=== PATIENT | female | born 1955 | race Caucasian/White ===

== ENCOUNTER → 2020-05-15 | Outpatient (CLI) | payer OTHER ==
[~2020-05-15] MED LIST: ALLEGRA ALLERG180 MG PO; AMBIEN10 MG PO; ASPIR-LOW81 MG PO; BACTROBAN OINT22 GM EXT; BISOPROLOL-HCT1 EACH PO; CEFUROXIME250 MG PO; COZAAR50 MG PO; ELIQUIS2.5 MG PO; FERROUS SULFAT325 M2 PO; GLUCAGON IV/SC 11 MG IM; GLUCOPHAGE1000 MG PO; GLUTOSE 1537.5 GM PO; KLOR-CON 1010 MEQ PO; LASIX20 MG PO; LEVOFLOXACIN250 MG PO; LOPRESSOR 50 MG50 MG PO; LOPRESSOR100 MG PO; MAGNESIUM400 MG PO; MAGOX 400400 MG PO; NOVOLOG100 UNIT/1 SQ; PREVACID15 MG PO; PROPAFENONE HC225 M1 PO; TOUJEO MAX300 UNIT/1 SQ; VITAMIN D250000 UNIT PO; Voltaren Gel 1% TOP
== END ==
LOC: EXRD 12:43
DX: R06.02 Shortness of breath (principal)
CPT/HCPCS: 71046

== ENCOUNTER → 2020-06-25 | Outpatient (CLI) | payer OTHER | LOC: HEART 5 06-03 08:30 | DX: I48.91 Unspecified atrial fibrillation (principal); I27.20 Pulmonary hypertension, unspecified; I08.1 Rheumatic disorders of both mitral and tricuspid valves; R93.1 Abnormal findings on diagnostic imaging of heart and coronary circulation | CPT/HCPCS: 93306 ==

== ENCOUNTER → 2020-08-02 | Outpatient (CLI) | payer OTHER | LOC: MRI 13:43 | DX: H53.10 Unspecified subjective visual disturbances (principal); I67.82 Cerebral ischemia | CPT/HCPCS: 36415; 70553; 82565; A9577 ==

== ENCOUNTER 2020-11-22 18:34 | Emergency (ER) | payer OTHER ==
[2020-11-22 21:44] LABS: HEMOGLOBIN 9.9 gm/dl (12.3-15.3); RED BLOOD COUNT 3.45 M/UL (4.00-5.10); WHITE BLOOD COUNT 6.5 K/UL (4.5-11.0)
== END 2020-11-23 01:55 | disposition home or self-care (01) ==
LOC: ER1 18:34
PROVIDERS: Student in an Organized Health Care Education/Training Program
DX: E83.42 Hypomagnesemia (principal); I48.91 Unspecified atrial fibrillation; I25.10 Atherosclerotic heart disease of native coronary artery without angina pectoris; I10 Essential (primary) hypertension; E11.9 Type 2 diabetes mellitus without complications; Z90.49 Acquired absence of other specified parts of digestive tract
CPT/HCPCS: 80053; 83735; 85025; 93005; 96374; 99285; J3475

== ENCOUNTER → 2020-11-22 | Outpatient (CLI) | payer OTHER | LOC: LAB 15:48 | PROVIDERS: Nurse Practitioner | DX: E10.69 Type 1 diabetes mellitus with other specified complication (principal); E83.42 Hypomagnesemia; D51.9 Vitamin B12 deficiency anemia, unspecified; E55.9 Vitamin D deficiency, unspecified | CPT/HCPCS: 80053; 83735 ==

== ENCOUNTER 2020-11-24 14:21 | Emergency (ER) | payer OTHER ==
[2020-11-24 15:28] LABS: HEMOGLOBIN 9.1 gm/dl (12.3-15.3); RED BLOOD COUNT 3.12 M/UL (4.00-5.10); WHITE BLOOD COUNT 5.2 K/UL (4.5-11.0)
[2020-11-24 15:50] LABS: BUN/CREATININE RATIO 14 (0-10)
== END 2020-11-24 17:08 | disposition home or self-care (01) ==
LOC: ER1 14:21
PROVIDERS: Family Medicine
DX: D64.9 Anemia, unspecified (principal); E11.65 Type 2 diabetes mellitus with hyperglycemia; N28.9 Disorder of kidney and ureter, unspecified; I10 Essential (primary) hypertension; Z79.4 Long term (current) use of insulin; Z79.899 Other long term (current) drug therapy
CPT/HCPCS: 80053; 81001; 82550; 82553; 83735; 83874; 84439; 84443; 84484; 85025; 93005; 99285

== ENCOUNTER 2020-12-14 10:56 | Emergency (ER) | payer OTHER ==
[2020-12-14 11:53] LABS: RED BLOOD COUNT 3.21 M/UL (4.00-5.10); WHITE BLOOD COUNT 4.3 K/UL (4.5-11.0)
== END 2020-12-14 17:13 | disposition home or self-care (01) ==
LOC: ER1 10:56
PROVIDERS: Physician Assistant Medical
DX: H54.61 Unqualified visual loss, right eye, normal vision left eye (principal); E11.9 Type 2 diabetes mellitus without complications; I10 Essential (primary) hypertension; Z79.01 Long term (current) use of anticoagulants; Z90.49 Acquired absence of other specified parts of digestive tract
CPT/HCPCS: 70450; 70496; 70498; 80053; 85025; 85652; 86140; 99284; Q9967

== ENCOUNTER → 2021-03-06 | Outpatient (CLI) | payer OTHER ==
[~2021-03-06] MED LIST changes: +ACETAMINOPHEN325 MG PO; +AMLODIPINE BESYL5 MG PO; +ASPIRIN81 MG PO; +CRESTOR10 MG PO; +FAMOTIDINE40 MG PO; +HYDRALAZINE HC100 MG PO; +LOSARTAN POTAS100 MG PO; +MAGNESIUM250 M1 PO; -MAGOX 400400 MG PO; +METHIMAZOLE10 MG PO; +NOVOLOG FL100 UNIT/1 SQ; -NOVOLOG100 UNIT/1 SQ; +ONDANSETRON HCL4 MG PO; +PROPAFENONE HC150 MG PO; +SPIRONOLACTONE25 MG PO; +VITAMIN D21250 MCG PO; -VITAMIN D250000 UNIT PO
== END ==
LOC: KOH-I 15:47
DX: S82.002A Unspecified fracture of left patella, initial encounter for closed fracture (principal)
CPT/HCPCS: 73700

== ENCOUNTER → 2021-06-27 | Outpatient (CLI) | payer OTHER ==
[2021-06-27 11:48] LABS: HEMOGLOBIN 10.2 gm/dl (12.3-15.3); RED BLOOD COUNT 3.63 M/UL (4.00-5.10); WHITE BLOOD COUNT 6.9 K/UL (4.5-11.0)
== END ==
LOC: LAB 11:03
PROVIDERS: Internal Medicine Nephrology; Nurse Practitioner
DX: E78.2 Mixed hyperlipidemia (principal); E11.22 Type 2 diabetes mellitus with diabetic chronic kidney disease; I12.9 Hypertensive chronic kidney disease with stage 1 through stage 4 chronic kidney disease, or unspecified chronic kidney disease; N18.32 Chronic kidney disease, stage 3b; R53.82 Chronic fatigue, unspecified; E55.9 Vitamin D deficiency, unspecified; E53.8 Deficiency of other specified B group vitamins
CPT/HCPCS: 36415; 80053; 80061; 82043; 82570; 82607; 83036; 83735; 84156; 85025

== ENCOUNTER → 2021-07-16 | Outpatient (CLI) | payer OTHER | LOC: LAB 10:59 | PROVIDERS: Nurse Practitioner Family | DX: E11.41 Type 2 diabetes mellitus with diabetic mononeuropathy (principal); E83.42 Hypomagnesemia | CPT/HCPCS: 36415; 80053; 83735 ==

== ENCOUNTER → 2021-08-15 | Outpatient (CLI) | payer OTHER | LOC: LAB 11:08 | PROVIDERS: Nurse Practitioner Family | DX: E11.9 Type 2 diabetes mellitus without complications (principal); E83.42 Hypomagnesemia | CPT/HCPCS: 36415; 80053; 83735 ==

== ENCOUNTER → 2021-10-15 | Outpatient (CLI) | payer OTHER ==
[2021-10-16 10:16] LABS: CREATININE, URINE 27.6 mg/dL (Not Estab.)
== END ==
LOC: LAB 10:29
PROVIDERS: Internal Medicine Nephrology
DX: E11.22 Type 2 diabetes mellitus with diabetic chronic kidney disease (principal); N18.32 Chronic kidney disease, stage 3b; E83.42 Hypomagnesemia
CPT/HCPCS: 36415; 80053; 82043; 82570; 83735; 84156

== ENCOUNTER → 2021-11-05 | Outpatient (CLI) | payer OTHER ==
[2021-11-05 11:17] LABS: HEMOGLOBIN 11.3 gm/dl (12.3-15.3); RED BLOOD COUNT 4.02 M/UL (4.00-5.10); WHITE BLOOD COUNT 5.5 K/UL (4.5-11.0)
== END ==
LOC: LAB 10:03
PROVIDERS: Nurse Practitioner
DX: E55.9 Vitamin D deficiency, unspecified (principal); D51.9 Vitamin B12 deficiency anemia, unspecified
CPT/HCPCS: 36415; 80053; 82607; 82746; 83036; 83735; 84443; 85025

== ENCOUNTER 2021-11-09 16:32 | Emergency (ER) | payer OTHER ==
[2021-11-09 17:10] LABS: HEMOGLOBIN 10.9 gm/dl (12.3-15.3); RED BLOOD COUNT 3.83 M/UL (4.00-5.10)
== END 2021-11-09 20:34 | disposition home or self-care (01) ==
LOC: ER1 16:32
PROVIDERS: Emergency Medicine
DX: R20.2 Paresthesia of skin (principal); M79.601 Pain in right arm; E11.9 Type 2 diabetes mellitus without complications; I10 Essential (primary) hypertension; I48.91 Unspecified atrial fibrillation; Z90.49 Acquired absence of other specified parts of digestive tract; Z51.81 Encounter for therapeutic drug level monitoring
CPT/HCPCS: 70450; 71045; 80053; 82550; 82553; 84484; 85025; 85610; 85730; 93005; 99284

== ENCOUNTER → 2021-11-11 | Outpatient (CLI) | payer OTHER ==
[2021-11-12 10:14] LABS: CREATININE, URINE 18.3 mg/dL (Not Estab.)
[2021-11-12 12:14] LABS: ANTI-DSDNA ANTIBODIES 1 IU/mL (0-9); COMPLEMENT C3, SERUM 152 mg/dL (82-167); COMPLEMENT C4, SERUM 21 mg/dL (12-38)
[2021-11-12 15:10] LABS: A/G RATIO 1.2 (0.7-1.7); ALBUMIN 3.9 g/dL (2.9-4.4); ALPHA-1-GLOBULIN 0.2 g/dL (0.0-0.4); ALPHA-2-GLOBULIN 1.1 g/dL (0.4-1.0); BETA GLOBULIN 1.1 g/dL (0.7-1.3); GAMMA GLOBULIN 0.9 g/dL (0.4-1.8); GLOBULIN, TOTAL 3.4 g/dL (2.2-3.9); IMMUNOGLOBULIN A, QN, SERUM 160 mg/dL (87-352); IMMUNOGLOBULIN G, QN, SERUM 910 mg/dL (586-1602); IMMUNOGLOBULIN M, QN, SERUM 66 mg/dL (26-217); M-SPIKE Not Observed g/dL (Not Observed); PROTEIN, TOTAL, SERUM 7.3 g/dL (6.0-8.5)
== END ==
LOC: LAB 09:56
PROVIDERS: Internal Medicine Nephrology
DX: N18.32 Chronic kidney disease, stage 3b (principal); R80.9 Proteinuria, unspecified
CPT/HCPCS: 36415; 80053; 82043; 82570; 82784; 83520; 84155; 84156; 84165; 86038; 86160; 86225; 86256; 86334

== ENCOUNTER → 2021-12-17 | Outpatient (CLI) | payer OTHER ==
[2021-12-18 11:14] LABS: CREATININE, URINE 33.6 mg/dL (Not Estab.)
== END ==
LOC: LAB 10:58
PROVIDERS: Internal Medicine Nephrology
DX: N18.32 Chronic kidney disease, stage 3b (principal)
CPT/HCPCS: 36415; 80053; 82043; 82570; 83516; 84156

== ENCOUNTER 2021-12-24 09:42 | Observation (INO) | payer OTHER ==
[~2021-12-24] VITALS: Ht 162.6 cm; Wt 94.3 kg
[~2021-12-24 09:42] MED LIST changes: +AMLODIPINE BESY10 MG PO; -AMLODIPINE BESYL5 MG PO; +MAGNESIUM OXID400 M1 PO; -MAGNESIUM250 M1 PO; +NOVOLOG FL100 UNIT/1 INJ; -NOVOLOG FL100 UNIT/1 SQ
[2021-12-24 10:07] LABS: HEMOGLOBIN 10.6 gm/dl (12.3-15.3); RED BLOOD COUNT 3.63 M/UL (4.00-5.10); WHITE BLOOD COUNT 7.1 K/UL (4.5-11.0)
[2021-12-24] MEDS ORDERED: JARDIANCE10 MG PO (13:17)
[2021-12-24] MEDS ORDERED: FUROSEMIDE20 MG PO (13:21)
[2021-12-24] MEDS ORDERED: PROTONIX40 MG PO (13:22)
[2021-12-24] MEDS ORDERED: DILTIAZEM 24HR180 M1 PO (13:23)
[2021-12-24] MEDS ORDERED: CARVEDILOL25 MG PO (13:25)
[2021-12-24] MEDS ORDERED: CYCLOBENZAPRINE10 MG PO (13:27)
[2021-12-24] MEDS ORDERED: FERROUS SULFAT325 MG PO (13:28)
[2021-12-24] MEDS ORDERED: TRESIBA FL100 UNIT/1 SQ (13:30)
[2021-12-25 02:58] LABS: HEMOGLOBIN 11.2 gm/dl (12.3-15.3); RED BLOOD COUNT 3.82 M/UL (4.00-5.10); WHITE BLOOD COUNT 8.3 K/UL (4.5-11.0)
[2021-12-26 03:18] LABS: HEMOGLOBIN 10.8 gm/dl (12.3-15.3); RED BLOOD COUNT 3.66 M/UL (4.00-5.10); WHITE BLOOD COUNT 6.6 K/UL (4.5-11.0)
[2021-12-26] MEDS ORDERED: AMLODIPINE BESYL5 MG PO (09:36)
[2021-12-26] MEDS ORDERED: CARVEDILOL12.5 MG PO (09:36)
--- NOTE | 2021-12-26 12:24 | NUR ---
PT DISCHARGED WITH 30 DAY EVENT MONITOR ON. INSTRUCTED TO F/U WITH NEPHRO AND CARDS AND EDUCATED ON MED CHANGES.
== END 2021-12-26 12:32 | disposition home health service (06) ==
LOC: ER1 09:42 → CDU 11:43 → M/S 11:43
PROVIDERS: Emergency Medicine; Internal Medicine; Physician Assistant; ADMIT Internal Medicine
DX: R00.1 Bradycardia, unspecified (principal); R55 Syncope and collapse; I16.0 Hypertensive urgency; E87.1 Hypo-osmolality and hyponatremia; E11.65 Type 2 diabetes mellitus with hyperglycemia; I48.0 Paroxysmal atrial fibrillation; I27.20 Pulmonary hypertension, unspecified; N17.9 Acute kidney failure, unspecified; I12.9 Hypertensive chronic kidney disease with stage 1 through stage 4 chronic kidney disease, or unspecified chronic kidney disease; I44.0 Atrioventricular block, first degree; E11.22 Type 2 diabetes mellitus with diabetic chronic kidney disease; N18.30 Chronic kidney disease, stage 3 unspecified; E78.5 Hyperlipidemia, unspecified; E05.90 Thyrotoxicosis, unspecified without thyrotoxic crisis or storm; E66.9 Obesity, unspecified; Z68.35 Body mass index [BMI] 35.0-35.9, adult; Z79.82 Long term (current) use of aspirin; Z79.4 Long term (current) use of insulin; Z79.84 Long term (current) use of oral hypoglycemic drugs; Z79.899 Other long term (current) drug therapy
CPT/HCPCS: ECHO; 36415; 70450; 71045; 80048; 80053; 82550; 82553; 82962; 83540; 83550; 83735; 83880; 84439; 84443; 84484; 85025; 85027; 85610; 85730; 93005; 93270; 93306; 93880; 97161; 97165; 99285; G0378; J0360

== ENCOUNTER → 2022-01-22 | Outpatient (CLI) | payer OTHER ==
[~2022-01-22] MED LIST changes: +AMLODIPINE BESYL5 MG PO; +CARVEDILOL12.5 MG PO; +CARVEDILOL25 MG PO; +CYCLOBENZAPRINE10 MG PO; +DILTIAZEM 24HR180 M1 PO; +FERROUS SULFAT325 MG PO; +FUROSEMIDE20 MG PO; +JARDIANCE10 MG PO; +PROTONIX40 MG PO; +TRESIBA FL100 UNIT/1 SQ
[2022-01-23 11:13] LABS: CREATININE, URINE 22.7 mg/dL (Not Estab.)
== END ==
LOC: LAB 11:06
PROVIDERS: Internal Medicine Nephrology
DX: N18.32 Chronic kidney disease, stage 3b (principal)
CPT/HCPCS: 36415; 80053; 82043; 82570; 83735; 84156